=== PATIENT | male | born 1995 | race Caucasian/White ===

== ENCOUNTER 2020-08-01 10:51 | Emergency (ER) | payer OTHER ==
[~2020-08-01] VITALS: Ht 172.7 cm; Wt 83.9 kg
[2020-08-01] MEDS ORDERED: AUGMENTIN 875-1 EACH PO (11:26)
[2020-08-01] MEDS ORDERED: IBUPROFEN 800800 M1 PO (11:26)
[2020-08-01] MEDS ORDERED: TRAMADOL 50 MG50 MG PO (11:26)
[2020-08-01 11:50] VITALS: BP 131/77
== END 2020-08-01 11:51 | disposition home or self-care (01) ==
LOC: M.ERS 10:51
DX: S51.852A Open bite of left forearm, initial encounter (principal); L08.9 Local infection of the skin and subcutaneous tissue, unspecified; W54.0XXA Bitten by dog, initial encounter; Y93.89 Activity, other specified; Y92.89 Other specified places as the place of occurrence of the external cause; Y99.8 Other external cause status